=== PATIENT | male | born 1990 | race African-American/Black ===

== ENCOUNTER 2019-11-17 16:12 | Emergency (ER) | payer SELFPAY ==
[~2019-11-17] VITALS: Ht 172.7 cm; Wt 63.5 kg
[2019-11-17 16:45] VITALS: BP 124/85
== END 2019-11-17 18:03 | disposition home or self-care (01) ==
LOC: EDBD 16:12 → ER 16:12
DX: S00.83XA Contusion of other part of head, initial encounter (principal); Z91.018 Allergy to other foods; Y08.89XA Assault by other specified means, initial encounter; Y93.89 Activity, other specified; Y99.8 Other external cause status; Y92.89 Other specified places as the place of occurrence of the external cause
CPT/HCPCS: 70450